=== PATIENT | female | born 1995 | race Caucasian/White ===

== ENCOUNTER 2018-06-29 13:56 | Inpatient (IN) | payer OTHER ==
[~2018-06-29] VITALS: Ht 149.9 cm; Wt 69.9 kg
[2018-07-07] MEDS ORDERED: PRENATAL CAPLE1 EAC1 PO (07:52)
[2018-07-07] MEDS ORDERED: ZANTAC300 MG PO (07:53)
== END 2018-07-09 15:56 | disposition home or self-care (01) | DRG 807 ==
LOC: OB/GYN 07-07 06:23 → LDR 07-07 06:23 → OB/GYN 07-07 12:01 → SURH 07-09 15:15 → OB/GYN 07-09 15:56
PROVIDERS: ADMIT Obstetrics & Gynecology
PROC: 10E0XZZ Delivery of Products of Conception, External Approach (ICD-10-PCS; principal; 2018-07-07)
PROC: 0HQ9XZZ Repair Perineum Skin, External Approach (ICD-10-PCS; 2018-07-07)
PROC: 3E0P7VZ Introduction of Hormone into Female Reproductive, Via Natural or Artificial Opening (ICD-10-PCS; 2018-07-07)
PROC: 3E033VJ Introduction of Other Hormone into Peripheral Vein, Percutaneous Approach (ICD-10-PCS; 2018-07-07)
PROC: 4A1HXCZ Monitoring of Products of Conception, Cardiac Rate, External Approach (ICD-10-PCS; 2018-07-07)
DX: O70.0 First degree perineal laceration during delivery (principal); Z37.0 Single live birth; Z3A.39 39 weeks gestation of pregnancy